=== PATIENT | female | born 1965 | race African-American/Black ===

== ENCOUNTER 2018-12-09 09:16 | Inpatient (IN) | payer MEDICAID, OTHER ==
[2018-12-09] VITALS (45 sets, daily range): BP systolic 113–211; BP diastolic 68–151
[~2018-12-09] VITALS: Ht 162.6 cm; Wt 95.7 kg
[2018-12-09] MEDS ORDERED: ENALAPRIL 2.5MG/2ML VIAL 2ML IV ONE (10:00)
[2018-12-09] MEDS ORDERED: NITROGLYCERIN 50MG PREMIX 250 ML IV ONE (10:00)
[2018-12-09] MEDS ORDERED: FUROSEMIDE 40MG/4ML VIAL IV ONE (10:00)
[2018-12-09 10:06] LABS: BASOPHILS % 0.8 % (0.0-2.0); EOSINOPHILS % 0.7 % (0.0-5.0); HEMATOCRIT. 40.5 % (36.0-48.0); HEMOGLOBIN. 12.7 g/dL (12.0-16.0); LYMPHOCYTES % 28.5 % (20.0-50.0); MEAN CORPUSCULAR HEMOGLOBIN 25.2 pg (28.0-32.0); MEAN CORPUSCULAR VOLUME 80.3 fL (81.0-99.0); MEAN PLATELET VOLUME 7.9 fl (7.4-10.4); MONOCYTES % 9.6 % (2.0-8.0); NEUTROPHILS % 60.4 % (40.0-76.0); PLATELET 449 x1000/uL (130-400); RED BLOOD CELL COUNT 5.05 mill/uL (4.2-5.4); RED CELL DISTRIBUTION WIDTH 16.2 % (11.6-14.6)
[2018-12-09 10:13] LABS: CHLORIDE 102 mEq/L (98-107)
[2018-12-09 10:30] LABS: INR 1.2; PARTIAL THROMBOPLASTIN TIME 28.2 sec (23.4-31.0)
[2018-12-09 10:52] LABS: CLARITY URINE CLOUDY (CLEAR); COLOR URINE YELLOW (YELLOW); KETONES URINE NEGATIVE (NEGATIVE); LEUKOCYTE ESTERASE URINE 2+ (NEGATIVE); NITRITE URINE NEGATIVE (NEGATIVE); OCCULT BLOOD URINE TRACE (NEGATIVE); PROTEIN URINE 2+ (NEGATIVE)
[2018-12-09] MEDS ORDERED: ONDANSETRON HCL 4MG/2ML INJ IV PRN (14:30)
[2018-12-09] MEDS ORDERED: AMLODIPINE 10MG TABLET PO SCH (14:30)
[2018-12-09] MEDS ORDERED: IPRATROPIUM/ALBUTEROL 0.5-3(2.5)MG/3ML NEB INH PRN (14:30)
[2018-12-09] MEDS: LOSARTAN POTASSIUM 50 MG TABLET PO SCH (14:33)
[2018-12-09] MEDS: PANTOPRAZOLE SODIUM 40 MG/VIAL IV SCH (15:04)
[2018-12-09] MEDS: NIFEDIPINE XL 90MG TAB PO SCH (15:04)
[2018-12-09] MEDS: NITROGLYCERIN 50MG PREMIX 250 ML IV PRN ×2 (16:16→23:19)
[2018-12-09 16:17] LABS: HEPATITIS B SURFACE ANTIGEN NEGATIVE
[2018-12-09] MEDS: CEFTRIAXONE 1 G PREMIX 50 ML IV SCH (16:31)
[2018-12-09] MEDS: CLONIDINE 0.1MG TABLET PO PRN (16:33)
[2018-12-09 16:46] LABS: HEPATITIS A AB IGM NEGATIVE (NEGATIVE)
[2018-12-09] MEDS: ACETAMINOPHEN 325MG TABLET PO PRN (18:47)
[2018-12-09] MEDS ORDERED: DEXTROSE 50% WATER 50ML SYRINGE IV PRN (20:15)
[2018-12-09] MEDS: INSULIN LISPRO 100 UNITS/ML SUBCUT SCH (21:06)
[2018-12-09] MEDS: HYDRALAZINE HCL 25MG TABLET PO SCH (21:08)
[2018-12-09] MEDS: METOPROLOL TARTRATE 50MG TABLET PO SCH (21:09)
[2018-12-09] MEDS: BLOOD SUGAR DIAGNOSTIC STRIP TEST SCH (21:09)
[2018-12-10] VITALS (82 sets, daily range): BP systolic 95–163; BP diastolic 40–100
[2018-12-10] MEDS: HYDRALAZINE HCL 25MG TABLET PO SCH (06:06)
[2018-12-10 06:28] LABS: BASOPHILS % 0.4 % (0.0-2.0); EOSINOPHILS % 0.4 % (0.0-5.0); HEMOGLOBIN. 11.9 g/dL (12.0-16.0); LYMPHOCYTES % 12.7 % (20.0-50.0); MEAN CORPUSCULAR HEMOGLOBIN 25.3 pg (28.0-32.0); MEAN CORPUSCULAR VOLUME 80.6 fL (81.0-99.0); MEAN PLATELET VOLUME 7.9 fl (7.4-10.4); MONOCYTES % 11.3 % (2.0-8.0); NEUTROPHILS % 75.2 % (40.0-76.0); PLATELET 395 x1000/uL (130-400); RED BLOOD CELL COUNT 4.71 mill/uL (4.2-5.4); RED CELL DISTRIBUTION WIDTH 15.8 % (11.6-14.6)
[2018-12-10 06:50] LABS: CHLORIDE 101 mEq/L (98-107)
[2018-12-10] MEDS: BLOOD SUGAR DIAGNOSTIC STRIP TEST SCH ×4 (07:50→20:28)
[2018-12-10] MEDS: PANTOPRAZOLE SODIUM 40 MG/VIAL IV SCH (08:54)
[2018-12-10] MEDS: FUROSEMIDE 40MG/4ML VIAL IVP SCH (08:54)
[2018-12-10] MEDS: POTASSIUM CHLORIDE 20MEQ/PACKET PO SCH (08:55)
[2018-12-10] MEDS: METOPROLOL TARTRATE 50MG TABLET PO SCH ×2 (08:55→20:58)
[2018-12-10] MEDS: LOSARTAN POTASSIUM 50 MG TABLET PO SCH (08:55)
[2018-12-10] MEDS: NIFEDIPINE XL 90MG TAB PO SCH (08:55)
[2018-12-10] MEDS: INSULIN LISPRO 100 UNITS/ML SUBCUT SCH ×4 (08:57→20:58)
[2018-12-10] MEDS: CEFTRIAXONE 1 G PREMIX 50 ML IV SCH (16:18)
[2018-12-11] VITALS (45 sets, daily range): BP systolic 118–171; BP diastolic 57–126
[2018-12-11 05:48] LABS: HEMATOCRIT. 39.2 % (36.0-48.0); HEMOGLOBIN. 12.3 g/dL (12.0-16.0); MEAN CORPUSCULAR VOLUME 79.6 fL (81.0-99.0); MEAN PLATELET VOLUME 8.1 fl (7.4-10.4); PLATELET 437 x1000/uL (130-400); RED BLOOD CELL COUNT 4.92 mill/uL (4.2-5.4); RED CELL DISTRIBUTION WIDTH 16.1 % (11.6-14.6)
[2018-12-11] MEDS: INSULIN LISPRO 100 UNITS/ML SUBCUT SCH ×4 (08:20→21:21)
[2018-12-11] MEDS: BLOOD SUGAR DIAGNOSTIC STRIP TEST SCH ×4 (08:20→21:17)
[2018-12-11] MEDS: PANTOPRAZOLE SODIUM 40 MG/VIAL IV SCH (08:22)
[2018-12-11] MEDS: FUROSEMIDE 40MG/4ML VIAL IVP SCH (08:22)
[2018-12-11] MEDS: METOPROLOL TARTRATE 50MG TABLET PO SCH ×2 (08:23→21:17)
[2018-12-11] MEDS: POTASSIUM CHLORIDE 20MEQ/PACKET PO SCH (08:23)
[2018-12-11] MEDS: LOSARTAN POTASSIUM 50 MG TABLET PO SCH (08:23)
[2018-12-11] MEDS: NIFEDIPINE XL 90MG TAB PO SCH (08:23)
[2018-12-11 11:19] LABS: PLATELET ESTIMATE SLIGHTLY INCREASED
[2018-12-11] MEDS: CEFTRIAXONE 1 G PREMIX 50 ML IV SCH (16:15)
[2018-12-11] MEDS: ACETAMINOPHEN 325MG TABLET PO PRN (19:33)
[2018-12-12] VITALS (13 sets, daily range): BP systolic 120–142; BP diastolic 70–93
[2018-12-12 05:25] LABS: HEMATOCRIT. 39.2 % (36.0-48.0); HEMOGLOBIN. 12.5 g/dL (12.0-16.0); MEAN CORPUSCULAR HEMOGLOBIN 25.3 pg (28.0-32.0); MEAN CORPUSCULAR VOLUME 79.4 fL (81.0-99.0); MEAN PLATELET VOLUME 7.9 fl (7.4-10.4); PLATELET 441 x1000/uL (130-400); RED BLOOD CELL COUNT 4.94 mill/uL (4.2-5.4); RED CELL DISTRIBUTION WIDTH 16.4 % (11.6-14.6)
[2018-12-12 05:51] LABS: CHLORIDE 101 mEq/L (98-107)
[2018-12-12] MEDS: INSULIN LISPRO 100 UNITS/ML SUBCUT SCH ×4 (05:59→21:07)
[2018-12-12] MEDS: BLOOD SUGAR DIAGNOSTIC STRIP TEST SCH ×4 (05:59→20:57)
[2018-12-12] MEDS: NIFEDIPINE XL 90MG TAB PO SCH (08:59)
[2018-12-12] MEDS: POTASSIUM CHLORIDE 20MEQ/PACKET PO SCH (08:59)
[2018-12-12] MEDS: PANTOPRAZOLE SODIUM 40 MG/VIAL IV SCH (08:59)
[2018-12-12] MEDS: FUROSEMIDE 40MG/4ML VIAL IVP SCH (08:59)
[2018-12-12] MEDS: LOSARTAN POTASSIUM 100 MG TABLET PO SCH (09:00)
[2018-12-12] MEDS: METOPROLOL TARTRATE 50MG TABLET PO SCH ×2 (09:00→21:09)
[2018-12-12 09:16] LABS: PLATELET ESTIMATE INCREASED
[2018-12-12] MEDS: CEFTRIAXONE 1 G PREMIX 50 ML IV SCH ×2 (15:09→17:14)
[2018-12-12] MEDS: ACETAMINOPHEN 325MG TABLET PO PRN (19:33)
[2018-12-13] VITALS (22 sets, daily range): BP systolic 81–162; BP diastolic 48–93
[2018-12-13] MEDS: BLOOD SUGAR DIAGNOSTIC STRIP TEST SCH ×4 (06:47→21:41)
[2018-12-13] MEDS: INSULIN LISPRO 100 UNITS/ML SUBCUT SCH ×4 (08:04→21:45)
[2018-12-13] MEDS: FAMOTIDINE 20MG TABLET PO SCH ×2 (08:48→17:47)
[2018-12-13] MEDS: LOSARTAN POTASSIUM 100 MG TABLET PO SCH (08:48)
[2018-12-13] MEDS: POTASSIUM CHLORIDE 20MEQ/PACKET PO SCH (08:49)
[2018-12-13] MEDS: METOPROLOL TARTRATE 50MG TABLET PO SCH (08:49)
[2018-12-13] MEDS: NIFEDIPINE XL 90MG TAB PO SCH (08:49)
[2018-12-13] MEDS: FUROSEMIDE 40MG/4ML VIAL IVP SCH ×2 (08:49→17:47)
[2018-12-13] MEDS: DOCUSATE SODIUM 100MG CAPSULE PO PRN (08:49)
[2018-12-13] MEDS: SPIRONOLACTONE 25MG TABLET PO SCH (11:06)
[2018-12-13] MEDS: CEFTRIAXONE 1 G PREMIX 50 ML IV SCH (15:44)
[2018-12-13] MEDS: CARVEDILOL 12.5MG TABLET PO SCH (21:37)
[2018-12-14] VITALS (19 sets, daily range): BP systolic 120–154; BP diastolic 73–99
[2018-12-14 06:32] LABS: CHLORIDE 101 mEq/L (98-107)
[2018-12-14 06:41] LABS: HEMATOCRIT. 37.4 % (36.0-48.0); HEMOGLOBIN. 11.7 g/dL (12.0-16.0); MEAN CORPUSCULAR HEMOGLOBIN 24.7 pg (28.0-32.0); MEAN CORPUSCULAR VOLUME 78.8 fL (81.0-99.0); MEAN PLATELET VOLUME 7.9 fl (7.4-10.4); PLATELET 451 x1000/uL (130-400); RED BLOOD CELL COUNT 4.74 mill/uL (4.2-5.4); RED CELL DISTRIBUTION WIDTH 15.8 % (11.6-14.6)
[2018-12-14] MEDS: ACETAMINOPHEN 325MG TABLET PO PRN ×3 (06:52→22:01)
[2018-12-14] MEDS: BLOOD SUGAR DIAGNOSTIC STRIP TEST SCH ×4 (06:52→21:00)
[2018-12-14 06:53] LABS: LDL CHOLESTEROL 56 mg/dL (5-100)
[2018-12-14 06:55] LABS: HDL CHOLESTEROL 39 mg/dL (40-59)
[2018-12-14] MEDS: FUROSEMIDE 40MG/4ML VIAL IVP SCH ×2 (07:50→17:14)
[2018-12-14] MEDS: SPIRONOLACTONE 25MG TABLET PO SCH (07:51)
[2018-12-14] MEDS: CARVEDILOL 12.5MG TABLET PO SCH ×2 (07:51→22:00)
[2018-12-14] MEDS: FAMOTIDINE 20MG TABLET PO SCH ×2 (07:51→17:15)
[2018-12-14] MEDS: INSULIN LISPRO 100 UNITS/ML SUBCUT SCH ×4 (07:52→21:37)
[2018-12-14] MEDS: POTASSIUM CHLORIDE 20MEQ/PACKET PO SCH (07:52)
[2018-12-14] MEDS ORDERED: NIFEDIPINE XL 60MG TAB PO SCH (09:00)
[2018-12-14] MEDS ORDERED: POTASSIUM CHLORIDE 20MEQ TABLET SR PO NR (10:00)
[2018-12-14 10:26] LABS: PLATELET ESTIMATE SLIGHTLY INCREASED
[2018-12-14] MEDS: MAGNESIUM OXIDE 400MG TABLET PO SCH (10:36)
[2018-12-14] MEDS: LOSARTAN POTASSIUM 100 MG TABLET PO SCH (10:37)
[2018-12-14] MEDS ORDERED: MAGNESIUM 1 G PREMIX 100 ML IV NR (12:00)
[2018-12-14] MEDS: CEFTRIAXONE 1 G PREMIX 50 ML IV SCH (17:33)
[2018-12-15] VITALS (22 sets, daily range): BP systolic 131–178; BP diastolic 72–111
[2018-12-15 06:50] LABS: HEMOGLOBIN. 12.3 g/dL (12.0-16.0); MEAN CORPUSCULAR HEMOGLOBIN 24.2 pg (28.0-32.0); MEAN CORPUSCULAR VOLUME 78.8 fL (81.0-99.0); MEAN PLATELET VOLUME 7.7 fl (7.4-10.4); PLATELET 472 x1000/uL (130-400); RED BLOOD CELL COUNT 5.07 mill/uL (4.2-5.4)
[2018-12-15] MEDS: BLOOD SUGAR DIAGNOSTIC STRIP TEST SCH ×3 (06:54→16:50)
[2018-12-15] MEDS: INSULIN LISPRO 100 UNITS/ML SUBCUT SCH ×3 (07:20→17:37)
[2018-12-15] MEDS: ACETAMINOPHEN 325MG TABLET PO PRN ×2 (07:38→12:09)
[2018-12-15] MEDS: LOSARTAN POTASSIUM 100 MG TABLET PO SCH (07:38)
[2018-12-15] MEDS: FAMOTIDINE 20MG TABLET PO SCH ×2 (07:38→17:36)
[2018-12-15] MEDS: MAGNESIUM OXIDE 400MG TABLET PO SCH (07:38)
[2018-12-15] MEDS: DOCUSATE SODIUM 100MG CAPSULE PO PRN (07:38)
[2018-12-15] MEDS: CARVEDILOL 12.5MG TABLET PO SCH (07:39)
[2018-12-15] MEDS: SPIRONOLACTONE 25MG TABLET PO SCH (07:39)
[2018-12-15] MEDS: POTASSIUM CHLORIDE 20MEQ/PACKET PO SCH (07:39)
[2018-12-15 07:51] LABS: CHLORIDE 103 mEq/L (98-107)
[2018-12-15] MEDS ORDERED: REGADENOSON 0.4 MG/5 ML IV ONE ×2 (08:15→10:12)
[2018-12-15 09:34] LABS: PLATELET ESTIMATE SLIGHTLY INCREASED
[2018-12-15] MEDS: FUROSEMIDE 40MG/4ML VIAL IVP SCH ×2 (09:43→16:08)
[2018-12-15] MEDS: CLONIDINE 0.1MG TABLET PO PRN (16:08)
[2018-12-15] MEDS: CEFTRIAXONE 1 G PREMIX 50 ML IV SCH (16:08)
[2018-12-15] MEDS ORDERED: HYDRALAZINE 20MG/ML VIAL IV NR (17:30)
== END 2018-12-15 18:49 | disposition home or self-care (01) | DRG 190 ==
LOC: ER 09:16 → CVICU 10:51 → EDBEDREQ 10:59 → ENRESERV 11:07 → 3WST 12-12 04:57
PROVIDERS: ADMIT Internal Medicine; ATTEND Internal Medicine
DX: I21.4 Non-ST elevation (NSTEMI) myocardial infarction (principal); I50.21 Acute systolic (congestive) heart failure; I42.9 Cardiomyopathy, unspecified; E11.65 Type 2 diabetes mellitus with hyperglycemia; I11.0 Hypertensive heart disease with heart failure; I16.1 Hypertensive emergency; E66.9 Obesity, unspecified; H53.2 Diplopia
CPT/HCPCS: 36415; 71045; 76700; 78452; 80048; 80061; 82962; 83036; 83735; 83880; 84484; 86705; 86709; 86803; 87340; 93005; 93017; 93306; 93970; 94640; 96365; 96375; 99285; A9500; C9113; J0360; J0696; J1815; J1940; J2405; J2785; J3475; J3490; J7050; J7620

== ENCOUNTER 2020-08-30 16:27 | Inpatient (IN) | payer MEDICAID ==
[~2020-08-30] VITALS: Ht 162.6 cm; Wt 80.3 kg
[~2020-08-30 16:27] MED LIST: ASPI-1406 PO; ATOR20TA PO; CLON0.1T14 PO; CLOP75TA15 PO; HYDR-4135 PO; ISOS30TA91 PO; LOSA50TA3 PO; METF500S7 PO; NIFE-33 PO
[2020-08-30] MEDS ORDERED: HYDRALAZINE HCL 50MG TABLET PO ONE (17:00)
[2020-08-30] MEDS ORDERED: CLONIDINE 0.1MG TABLET PO ONE (17:00)
[2020-08-30 17:49] LABS: BASOPHILS % 0.6 % (0.0-2.0); EOSINOPHILS % 1.2 % (0.0-5.0); HEMATOCRIT. 37.4 % (36.0-48.0); HEMOGLOBIN. 12.3 g/dL (12.0-16.0); LYMPHOCYTES % 15.5 % (20.0-50.0); MEAN CORPUSCULAR HEMOGLOBIN 27.7 pg (28.0-32.0); MEAN CORPUSCULAR VOLUME 84.2 fL (81.0-99.0); MONOCYTES % 7.2 % (2.0-8.0); NEUTROPHILS % 75.5 % (40.0-76.0); PLATELET 306 x1000/uL (130-400); RED BLOOD CELL COUNT 4.44 mill/uL (4.2-5.4); RED CELL DISTRIBUTION WIDTH 13.6 % (11.6-14.6)
[2020-08-30 17:49] LABS: CLARITY URINE CLOUDY (CLEAR); COLOR URINE YELLOW (YELLOW); KETONES URINE TRACE (NEGATIVE); LEUKOCYTE ESTERASE URINE 1+ (NEGATIVE); NITRITE URINE NEGATIVE (NEGATIVE); OCCULT BLOOD URINE NEGATIVE (NEGATIVE); PROTEIN URINE 2+ (NEGATIVE); UROBILINOGEN URINE 0.2 E.U./dL (0.2-1.0)
[2020-08-30 17:54] LABS: CHLORIDE 101 mEq/L (98-107)
[2020-08-30] MEDS ORDERED: ASPIRIN 325MG TABLET PO ONE (18:30)
[2020-08-30] MEDS ORDERED: LABETALOL HCL 20MG/4ML CARPUJECT IV NR (18:30)
[2020-08-30] MEDS ORDERED: SODIUM CHLORIDE 0.9% 1,000 ML IV ONE (18:30)
[2020-08-30] MEDS ORDERED: LABETALOL 5MG/ML SYR 20 MG/4 ML SYRINGE IV NR (19:00)
[2020-08-30] MEDS ORDERED: CLONIDINE 0.3MG TABLET PO PRN (23:45)
[2020-08-31] VITALS (12 sets, daily range): BP systolic 117–210; BP diastolic 69–108
[2020-08-31] MEDS ORDERED: IPRATROPIUM/ALBUTEROL 0.5-3(2.5)MG/3ML NEB NEB PRN (01:00)
[2020-08-31] MEDS ORDERED: DOCUSATE SODIUM 100MG CAPSULE PO PRN (01:00)
[2020-08-31] MEDS ORDERED: MAGNESIUM/ALUMINUM HYDROXIDE/SIMETHICONE 30ML UDC PO PRN (01:00)
[2020-08-31] MEDS ORDERED: ACETAMINOPHEN 325MG TABLET PO PRN (01:00)
[2020-08-31] MEDS ORDERED: HYDROCODONE/ACETAMINOPHEN 5/325MG TABLET PO PRN (01:00)
[2020-08-31] MEDS ORDERED: GUAIFENESIN 200MG/10ML SUGAR FREE UDC PO PRN (01:00)
[2020-08-31] MEDS ORDERED: LORAZEPAM 2MG/ML CPJ IV PRN (01:00)
[2020-08-31] MEDS ORDERED: NA PHOS,M-B/NA PHOS,DI-BA ENEMA 118ML PR PRN (01:00)
[2020-08-31] MEDS ORDERED: MORPHINE SULFATE 2 MG/ML CPJ (NOT FOR IM USE) IV PRN (01:00)
[2020-08-31] MEDS ORDERED: DIPHENHYDRAMINE 50MG/ML VIAL IV PRN (01:00)
[2020-08-31] MEDS ORDERED: ONDANSETRON HCL 4MG/2ML INJ IV PRN (01:00)
[2020-08-31] MEDS: HYDRALAZINE HCL 100MG TABLET PO SCH ×4 (01:01→21:31)
[2020-08-31] MEDS: METOPROLOL TARTRATE 50MG TABLET PO SCH ×3 (01:02→21:32)
[2020-08-31] MEDS: AMLODIPINE 10MG TABLET PO SCH (01:02)
[2020-08-31] MEDS: LISINOPRIL 20MG TABLET PO SCH (08:36)
[2020-08-31] MEDS: ENOXAPARIN 40MG/0.4ML SYR SUBCUT SCH (08:38)
[2020-08-31] MEDS: ASPIRIN 81MG EC TABLET PO SCH (08:38)
[2020-08-31] MEDS: CLONIDINE 0.1MG TABLET PO PRN (16:35)
[2020-09-01] VITALS (12 sets, daily range): BP systolic 130–160; BP diastolic 63–88
[2020-09-01] MEDS: HYDRALAZINE HCL 100MG TABLET PO SCH ×3 (05:48→21:37)
[2020-09-01 06:03] LABS: BASOPHILS % 0.5 % (0.0-2.0); EOSINOPHILS % 1.8 % (0.0-5.0); HEMATOCRIT. 35.7 % (36.0-48.0); HEMOGLOBIN. 11.9 g/dL (12.0-16.0); LYMPHOCYTES % 24.1 % (20.0-50.0); MEAN CORPUSCULAR HEMOGLOBIN 28.1 pg (28.0-32.0); MEAN CORPUSCULAR VOLUME 84.3 fL (81.0-99.0); MEAN PLATELET VOLUME 8.2 fl (7.4-10.4); NEUTROPHILS % 65.6 % (40.0-76.0); PLATELET 320 x1000/uL (130-400); RED BLOOD CELL COUNT 4.23 mill/uL (4.2-5.4); RED CELL DISTRIBUTION WIDTH 13.5 % (11.6-14.6)
[2020-09-01 06:16] LABS: CHLORIDE 102 mEq/L (98-107)
[2020-09-01 06:25] LABS: HDL CHOLESTEROL 62 mg/dL (40-59)
[2020-09-01 06:27] LABS: T4 FREE 1.14 ng/dL (0.76-1.46)
[2020-09-01 06:29] LABS: LDL CHOLESTEROL 58 mg/dL (5-100)
[2020-09-01] MEDS: METOPROLOL TARTRATE 50MG TABLET PO SCH ×2 (09:00→21:37)
[2020-09-01] MEDS: AMLODIPINE 10MG TABLET PO SCH (09:52)
[2020-09-01] MEDS: LISINOPRIL 20MG TABLET PO SCH (09:52)
[2020-09-01] MEDS: ASPIRIN 81MG EC TABLET PO SCH (09:52)
[2020-09-01] MEDS: ENOXAPARIN 40MG/0.4ML SYR SUBCUT SCH (09:53)
[2020-09-01] MEDS ORDERED: DEXTROSE 50% WATER 50ML SYRINGE IV PRN (10:00)
[2020-09-01] MEDS ORDERED: REGADENOSON 0.4 MG/5 ML IV SCH (11:00)
[2020-09-01] MEDS: BLOOD SUGAR DIAGNOSTIC STRIP TEST SCH ×3 (12:10→21:37)
[2020-09-01] MEDS: INSULIN LISPRO 100 UNITS/ML SUBCUT SCH ×3 (12:57→21:38)
[2020-09-01 13:21] LABS: T4 FREE 1.16 ng/dL (0.76-1.46)
[2020-09-02] VITALS (12 sets, daily range): BP systolic 141–182; BP diastolic 70–99
[2020-09-02] MEDS: HYDRALAZINE HCL 100MG TABLET PO SCH (06:00)
[2020-09-02] MEDS: BLOOD SUGAR DIAGNOSTIC STRIP TEST SCH ×4 (06:10→21:30)
[2020-09-02] MEDS: INSULIN LISPRO 100 UNITS/ML SUBCUT SCH ×4 (07:20→23:21)
[2020-09-02] MEDS: LISINOPRIL 20MG TABLET PO SCH (09:32)
[2020-09-02] MEDS: ASPIRIN 81MG EC TABLET PO SCH (09:32)
[2020-09-02] MEDS: AMLODIPINE 10MG TABLET PO SCH (09:32)
[2020-09-02] MEDS: ENOXAPARIN 40MG/0.4ML SYR SUBCUT SCH (09:38)
[2020-09-02] MEDS: CLONIDINE 0.1MG TABLET PO PRN (12:00)
[2020-09-02] MEDS: METOPROLOL TARTRATE 50MG TABLET PO SCH ×2 (12:01→21:37)
[2020-09-02] MEDS: HYDRALAZINE HCL 50MG TABLET PO SCH ×2 (15:06→21:37)
[2020-09-03] VITALS (7 sets, daily range): BP systolic 107–189; BP diastolic 48–104
[2020-09-03] MEDS: CLONIDINE 0.1MG TABLET PO PRN (04:56)
[2020-09-03] MEDS: HYDRALAZINE HCL 50MG TABLET PO SCH (06:15)
[2020-09-03] MEDS: BLOOD SUGAR DIAGNOSTIC STRIP TEST SCH (06:16)
[2020-09-03] MEDS: INSULIN LISPRO 100 UNITS/ML SUBCUT SCH (06:43)
[2020-09-03] MEDS: LISINOPRIL 20MG TABLET PO SCH (07:59)
[2020-09-03] MEDS: AMLODIPINE 10MG TABLET PO SCH (08:00)
[2020-09-03] MEDS ORDERED: HYDRALAZINE HCL 50MG TABLET PO NR (08:00)
[2020-09-03] MEDS ORDERED: REGADENOSON 0.4 MG/5 ML IV ONE (08:19)
[2020-09-03] MEDS: METOPROLOL TARTRATE 50MG TABLET PO SCH (09:00)
[2020-09-03] MEDS: ASPIRIN 81MG EC TABLET PO SCH (09:41)
[2020-09-03] MEDS: ENOXAPARIN 40MG/0.4ML SYR SUBCUT SCH (09:41)
[2020-09-03] MEDS ORDERED: HYDRALAZINE HCL 100MG TABLET PO SCH (14:00)
== END 2020-09-03 11:58 | disposition home or self-care (01) | DRG 199 ==
LOC: ER 16:27 → 3WST 18:37 → ENRESERV 22:58
PROVIDERS: ADMIT Internal Medicine; ATTEND Internal Medicine
DX: I16.1 Hypertensive emergency (principal); E11.9 Type 2 diabetes mellitus without complications; I25.10 Atherosclerotic heart disease of native coronary artery without angina pectoris; I11.0 Hypertensive heart disease with heart failure; I50.9 Heart failure, unspecified; N17.0 Acute kidney failure with tubular necrosis; G93.40 Encephalopathy, unspecified; E78.5 Hyperlipidemia, unspecified; Z82.49 Family history of ischemic heart disease and other diseases of the circulatory system; Z83.3 Family history of diabetes mellitus; Z79.84 Long term (current) use of oral hypoglycemic drugs; Z79.899 Other long term (current) drug therapy; Z79.82 Long term (current) use of aspirin
CPT/HCPCS: 36415; 78452; 80048; 80053; 80061; 81003; 82962; 83036; 83880; 84439; 84443; 84484; 85025; 85379; 93005; 93017; 93306; 99291; A9500; J1650; J1815; J2785; J3490; J7030

== ENCOUNTER 2020-09-04 12:10 | Emergency (ER) | payer MEDICAID ==
[~2020-09-04] VITALS: Ht 162.6 cm; Wt 75.0 kg
[~2020-09-04 12:10] MED LIST changes: +ASPI-1158 PO; -ASPI-1406 PO; -HYDR-4135 PO; +ISOS30TA6 PO; -ISOS30TA91 PO
[2020-09-04 16:26] VITALS: BP 160/89
== END 2020-09-04 16:30 | disposition home or self-care (01) ==
LOC: ER 12:10
DX: I13.2 Hypertensive heart and chronic kidney disease with heart failure and with stage 5 chronic kidney disease, or end stage renal disease (principal); E11.22 Type 2 diabetes mellitus with diabetic chronic kidney disease; I50.9 Heart failure, unspecified; N18.6 End stage renal disease; Z79.84 Long term (current) use of oral hypoglycemic drugs; Z99.2 Dependence on renal dialysis; Z79.82 Long term (current) use of aspirin
CPT/HCPCS: 81025; 93005; 99283

== ENCOUNTER 2024-08-09 14:24 | Emergency (ER) | payer MEDICAID ==
[~2024-08-09] VITALS: Ht 160 cm; Wt 68.0 kg
[~2024-08-09 14:24] MED LIST changes: -ASPI-1158 PO; +ASPI-1406 PO; -ISOS30TA6 PO; +ISOS30TA91 PO; +LOSA-413 PO; -LOSA50TA3 PO; -METF500S7 PO; +METF500S9 PO
[2024-08-09 14:50] VITALS: BP 126/81; PULSE 120; RESP 16; TEMP 98.2; O2SAT 100
[2024-08-09] MEDS ORDERED: IBUP-2741 MT (17:06)
== END 2024-08-09 17:10 | disposition home or self-care (01) ==
LOC: ER 14:24
DX: S70.02XA Contusion of left hip, initial encounter (principal); D64.9 Anemia, unspecified; I50.9 Heart failure, unspecified; I11.0 Hypertensive heart disease with heart failure; E11.9 Type 2 diabetes mellitus without complications; Z79.899 Other long term (current) drug therapy; W07.XXXA Fall from chair, initial encounter; X58.XXXA Exposure to other specified factors, initial encounter; Y93.89 Activity, other specified; Y92.89 Other specified places as the place of occurrence of the external cause; Y99.8 Other external cause status
CPT/HCPCS: 73502; 99283

== ENCOUNTER 2025-08-27 12:49 | Inpatient (IN) | payer MEDICAID ==
[~2025-08-27] VITALS: Ht 162.6 cm; Wt 83.5 kg
[~2025-08-27 12:49] MED LIST changes: +IBUP-2741 MT
[2025-08-27 12:54] VITALS: O2SAT 100
[2025-08-27 13:57] LABS: BASOPHILS % 0.5 % (0.0-2.0); EOSINOPHILS % 0.6 % (0.0-5.0); HEMATOCRIT. 34.8 % (36.0-48.0); HEMOGLOBIN. 11.3 g/dL (12.0-16.0); LYMPHOCYTES % 10.7 % (20.0-50.0); MEAN PLATELET VOLUME 8.4 fl (7.4-10.4); MONOCYTES % 5.0 % (2.0-8.0); NEUTROPHILS % 83.2 % (40.0-76.0); PLATELET 356 x1000/uL (130-400); RED BLOOD CELL COUNT 4.34 mill/uL (4.2-5.4); RED CELL DISTRIBUTION WIDTH 15.6 % (11.6-14.6)
[2025-08-27 14:04] LABS: CREATININE 2.0 mg/dL (0.6-1.0); UREA NITROGEN BLOOD 33.0 mg/dL (9-23)
[2025-08-27 15:40] LABS: TROPONIN I HIGH SENSITIVITY 110 ng/L (3.0-34)
[2025-08-27 15:41] LABS: T4 FREE 1.41 ng/dL (0.89-1.76)
[2025-08-27 18:32] LABS: TROPONIN I HIGH SENSITIVITY 106 ng/L (3.0-34)
[2025-08-27] MEDS ORDERED: DOCUSATE SODIUM 100MG CAPSULE PO PRN (19:15)
[2025-08-27] MEDS ORDERED: ACETAMINOPHEN 325MG TABLET PO PRN ×2 (19:15)
[2025-08-27] MEDS ORDERED: ONDANSETRON HCL 4MG/2ML INJ IV PRN (19:15)
[2025-08-27] MEDS ORDERED: IPRATROPIUM/ALBUTEROL 0.5-3(2.5)MG/3ML NEB HHN PRN (19:15)
[2025-08-27 19:51] LABS: CLARITY URINE CLOUDY (CLEAR); COLOR URINE YELLOW (YELLOW); GLUCOSE URINE TRACE (NEGATIVE); KETONES URINE NEGATIVE (NEGATIVE); LEUKOCYTE ESTERASE URINE 3+ (NEGATIVE); NITRITE URINE NEGATIVE (NEGATIVE); OCCULT BLOOD URINE TRACE (NEGATIVE); PH URINE 5.0 (4.5-8.0); PROTEIN URINE 3+ (NEGATIVE); SPECIFIC GRAVITY URINE 1.017 (1.005-1.030); UROBILINOGEN URINE 0.2 E.U./dL (0.2-1.0)
[2025-08-27 19:55] LABS: *AMPHETAMINES SCREEN URINE NEGATIVE (NEGATIVE); *BARBITURATES SCREEN URINE NEGATIVE (NEGATIVE); *BENZODIAZEPINES SCREEN URINE NEGATIVE (NEGATIVE); *COCAINE SCREEN URINE NEGATIVE (NEGATIVE); CANNABINOID URINE SCREEN NEGATIVE (NEGATIVE); ECSTASY MDMA SCREEN URINE NEGATIVE (NEGATIVE); METHADONE URINE SCREEN NEGATIVE (NEGATIVE); OPIATES URINE SCREEN NEGATIVE (NEGATIVE); PHENCYCLIDINE URINE SCREEN NEGATIVE (NEGATIVE)
[2025-08-27] MEDS: FUROSEMIDE 40MG/4ML VIAL IVP SCH (19:58)
[2025-08-27 20:06] LABS: BACTERIA URINE 1+; SQUAMOUS EPITHELIAL CELL URINE 2+ /lpf (RARE/1+)
[2025-08-27] MEDS: CLONIDINE 0.1MG TABLET PO PRN (20:21)
[2025-08-27] MEDS: NIFEDIPINE XL 30MG TAB PO SCH (22:29)
[2025-08-27 23:07] VITALS: BP 183/97; PULSE 90; RESP 17; TEMP 36.418
[2025-08-28] VITALS: BP 169/92; PULSE 71; RESP 18; TEMP 36.4; O2SAT 100
[2025-08-28 04:00] VITALS: BP 174/89; PULSE 75; RESP 18; TEMP 36.7; O2SAT 99
[2025-08-28] MEDS: LABETALOL 5MG/ML 4ML INJ IV NR (04:35)
[2025-08-28 07:44] LABS: BASOPHILS % 0.6 % (0.0-2.0); EOSINOPHILS % 2.0 % (0.0-5.0); HEMATOCRIT. 32.2 % (36.0-48.0); HEMOGLOBIN. 10.4 g/dL (12.0-16.0); LYMPHOCYTES % 24.5 % (20.0-50.0); MEAN PLATELET VOLUME 8.3 fl (7.4-10.4); MONOCYTES % 8.8 % (2.0-8.0); NEUTROPHILS % 64.1 % (40.0-76.0); PLATELET 293 x1000/uL (130-400); RED BLOOD CELL COUNT 4.01 mill/uL (4.2-5.4); RED CELL DISTRIBUTION WIDTH 16.0 % (11.6-14.6)
[2025-08-28 07:55] LABS: CREATININE 1.9 mg/dL (0.6-1.0)
[2025-08-28 07:56] LABS: PROTEIN TOTAL 6.7 g/dL (6.0-8.3); UREA NITROGEN BLOOD 28 mg/dL (9-23)
[2025-08-28 07:57] LABS: ASPARTATE AMINOTRANSFERASE 20 IU/L (<34)
[2025-08-28 07:58] LABS: BILIRUBIN TOTAL 0.4 mg/dL (0.1-1.0)
[2025-08-28 08:00] VITALS: BP 187/92; PULSE 70; RESP 16; TEMP 36.4; O2SAT 99
[2025-08-28] MEDS: FUROSEMIDE 40MG/4ML VIAL IVP SCH (09:09)
[2025-08-28] MEDS ORDERED: HYDR12.54 MT (09:24)
[2025-08-28] MEDS ORDERED: GLIP-12 PO (09:24)
[2025-08-28] MEDS ORDERED: GABA-529 MT (09:24)
[2025-08-28] MEDS ORDERED: MEDICATION NOT ON FORMULARY EA (Hydrochlorothiazide 1 TAB) MT SCH (10:30)
[2025-08-28] MEDS ORDERED: DEXTROSE 50% WATER 50ML SYRINGE IV PRN (10:30)
[2025-08-28 12:00] VITALS: BP 173/90; PULSE 71; RESP 14; TEMP 36.4; O2SAT 95
[2025-08-28] MEDS: BLOOD SUGAR DIAGNOSTIC STRIP TEST SCH (12:49)
[2025-08-28] MEDS: HYDROCHLOROTHIAZIDE 12.5MG CAPSULE PO SCH (13:00)
[2025-08-28] MEDS: ISOSORBIDE MONONITRATE 30MG TABLET SR 24HR PO SCH (13:01)
[2025-08-28] MEDS: GABAPENTIN 100MG CAPSULE PO SCH (13:01)
[2025-08-28] MEDS: CLOPIDOGREL 75MG TABLET PO SCH (13:01)
[2025-08-28] MEDS: ASPIRIN 81MG EC TABLET PO SCH (13:02)
[2025-08-28] MEDS: HYDRALAZINE 20MG/ML VIAL IV SCH (13:02)
[2025-08-28] MEDS: LOSARTAN 50 MG TABLET PO SCH (13:07)
[2025-08-28] MEDS: INSULIN LISPRO 100 UNITS/ML SUBCUT SCH (13:07)
[2025-08-28] MEDS: ENOXAPARIN 30MG/0.3ML SYR SUBCUT SCH (14:30)
[2025-08-28] MEDS: CLONIDINE 0.1MG TABLET PO SCH (14:32)
[2025-08-28 16:00] VITALS: BP 135/89; PULSE 76; RESP 17; TEMP 36.3; O2SAT 100
[2025-08-28 16:05] LABS: TRIGLYCERIDE 140.0 mg/dL (0-150)
[2025-08-28 16:06] LABS: LDL CHOLESTEROL 128.0 mg/dL (5-100)
[2025-08-28 20:00] VITALS: BP 153/91; PULSE 86; RESP 18; TEMP 35.8; O2SAT 99
[2025-08-28] MEDS: ATORVASTATIN CALCIUM 20MG TABLET PO SCH (20:51)
[2025-08-29] VITALS: BP 156/88; PULSE 79; RESP 17; TEMP 36.9; O2SAT 99
[2025-08-29 04:00] VITALS: BP 150/84; PULSE 79; RESP 18; TEMP 36.6; O2SAT 100
[2025-08-29 06:46] LABS: BASOPHILS % 0.8 % (0.0-2.0); EOSINOPHILS % 2.4 % (0.0-5.0); HEMATOCRIT. 30.8 % (36.0-48.0); HEMOGLOBIN. 10.1 g/dL (12.0-16.0); LYMPHOCYTES % 26.5 % (20.0-50.0); MEAN PLATELET VOLUME 8.4 fl (7.4-10.4); MONOCYTES % 7.3 % (2.0-8.0); NEUTROPHILS % 63.0 % (40.0-76.0); PLATELET 305 x1000/uL (130-400); RED BLOOD CELL COUNT 3.86 mill/uL (4.2-5.4); RED CELL DISTRIBUTION WIDTH 15.6 % (11.6-14.6)
[2025-08-29 07:09] LABS: CREATININE 2.4 mg/dL (0.6-1.0)
[2025-08-29 07:10] LABS: UREA NITROGEN BLOOD 34.0 mg/dL (9-23)
[2025-08-29 08:25] VITALS: BP 146/87; PULSE 76; RESP 17; TEMP 36.9; O2SAT 100
[2025-08-29] MEDS: SODIUM CHLORIDE 0.45% 1,000 ML IV SCH (10:04)
[2025-08-29 12:00] VITALS: BP 159/85; PULSE 72; RESP 16; TEMP 36.7; O2SAT 100
[2025-08-29 16:00] VITALS: BP 169/93; PULSE 71; RESP 17; TEMP 36.8; O2SAT 100
[2025-08-29 20:00] VITALS: BP 160/93; PULSE 65; RESP 17; TEMP 36.6; O2SAT 97
[2025-08-30] VITALS: BP 183/98; PULSE 69; RESP 18; TEMP 35.7; O2SAT 64
[2025-08-30] MEDS: HYDRALAZINE 20MG/ML VIAL IV PRN (02:51)
[2025-08-30 04:00] VITALS: BP 155/87; PULSE 79; RESP 17; TEMP 35.6; O2SAT 96
[2025-08-30 08:00] VITALS: BP 128/80; PULSE 81; RESP 17; TEMP 36.1; O2SAT 98
[2025-08-30 08:03] LABS: BASOPHILS % 0.6 % (0.0-2.0); EOSINOPHILS % 2.0 % (0.0-5.0); HEMATOCRIT. 32.9 % (36.0-48.0); HEMOGLOBIN. 10.8 g/dL (12.0-16.0); LYMPHOCYTES % 23.9 % (20.0-50.0); MEAN PLATELET VOLUME 8.6 fl (7.4-10.4); MONOCYTES % 7.7 % (2.0-8.0); NEUTROPHILS % 65.8 % (40.0-76.0); PLATELET 319 x1000/uL (130-400); RED BLOOD CELL COUNT 4.11 mill/uL (4.2-5.4); RED CELL DISTRIBUTION WIDTH 15.5 % (11.6-14.6)
[2025-08-30 08:05] LABS: CREATININE 2.1 mg/dL (0.6-1.0); UREA NITROGEN BLOOD 31.0 mg/dL (9-23)
[2025-08-30 09:07] LABS: COMPLEMENT C3 117 mg/dL (82-167); COMPLEMENT C4 37 mg/dL (12-38)
[2025-08-30 12:00] VITALS: BP 149/92; PULSE 83; RESP 18; TEMP 36.2; O2SAT 99
[2025-08-30 16:00] VITALS: BP 135/87; PULSE 84; RESP 19; TEMP 36.2; O2SAT 98
[2025-08-30 20:00] VITALS: BP 151/93; PULSE 80; RESP 18; TEMP 36.3; O2SAT 99
[2025-08-31] VITALS: BP 161/86; PULSE 71; RESP 19; TEMP 36.1; O2SAT 98
[2025-08-31 04:00] VITALS: BP 156/89; PULSE 76; RESP 21; TEMP 36.2; O2SAT 100
[2025-08-31 08:00] VITALS: BP 136/64; PULSE 73; RESP 16; TEMP 36.3; O2SAT 98
[2025-08-31 08:36] LABS: CREATININE 2.0 mg/dL (0.6-1.0)
[2025-08-31 08:37] LABS: UREA NITROGEN BLOOD 32.0 mg/dL (9-23)
[2025-08-31 08:45] LABS: BASOPHILS % 0.7 % (0.0-2.0); EOSINOPHILS % 2.4 % (0.0-5.0); HEMATOCRIT. 31.9 % (36.0-48.0); HEMOGLOBIN. 10.5 g/dL (12.0-16.0); LYMPHOCYTES % 21.9 % (20.0-50.0); MEAN PLATELET VOLUME 8.3 fl (7.4-10.4); MONOCYTES % 9.7 % (2.0-8.0); NEUTROPHILS % 65.3 % (40.0-76.0); PLATELET 311 x1000/uL (130-400); RED BLOOD CELL COUNT 3.97 mill/uL (4.2-5.4); RED CELL DISTRIBUTION WIDTH 15.6 % (11.6-14.6)
[2025-08-31 12:00] VITALS: BP 152/83; PULSE 84; RESP 17; TEMP 36.6; O2SAT 99
[2025-08-31 16:00] VITALS: BP 140/76; PULSE 77; RESP 16; TEMP 36.4; O2SAT 99
[2025-08-31 20:00] VITALS: BP 169/92; PULSE 80; RESP 20; TEMP 36.1; O2SAT 100
[2025-09-01] VITALS: BP 174/87; PULSE 80; RESP 20; TEMP 36.2; O2SAT 100
[2025-09-01 04:00] VITALS: BP 183/86; PULSE 90; RESP 19; TEMP 36.2; O2SAT 98
[2025-09-01 08:00] VITALS: BP 159/85; PULSE 87; RESP 16; TEMP 36; O2SAT 100
[2025-09-01 12:00] VITALS: BP 161/86; PULSE 90; RESP 18; TEMP 36.6; O2SAT 100
[2025-09-01] MEDS: HYDROCHLOROTHIAZIDE 12.5MG CAPSULE PO SCH (15:37)
[2025-09-01 16:00] VITALS: BP 158/85; PULSE 95; RESP 17; TEMP 36.1; O2SAT 99
[2025-09-01 17:35] VITALS: BP 158/85; PULSE 95; RESP 18; TEMP 96.9
[2025-09-01] MEDS ORDERED: HYDROCHLOROTHIAZIDE 12.5MG CAPSULE PO SCH (21:00)
[2025-09-04 17:07] LABS: ANTI-NUCLEAR ANTIBODIES DIRECT Negative (Negative)
== END 2025-09-01 18:00 | disposition home or self-care (01) | DRG 133 ==
LOC: ER 13:44 → EDBEDREQTM 18:44 → EDBEDREQ 18:44 → ENRESERV 19:59 → 6WST 22:40
PROVIDERS: ADMIT Family Medicine Adult Medicine; ATTEND Family Medicine Adult Medicine
DX: J96.00 Acute respiratory failure, unspecified whether with hypoxia or hypercapnia (principal); N17.0 Acute kidney failure with tubular necrosis; I50.33 Acute on chronic diastolic (congestive) heart failure; I13.0 Hypertensive heart and chronic kidney disease with heart failure and stage 1 through stage 4 chronic kidney disease, or unspecified chronic kidney disease; J45.901 Unspecified asthma with (acute) exacerbation; D50.9 Iron deficiency anemia, unspecified; E11.22 Type 2 diabetes mellitus with diabetic chronic kidney disease; D72.829 Elevated white blood cell count, unspecified; Z79.02 Long term (current) use of antithrombotics/antiplatelets; N18.9 Chronic kidney disease, unspecified; E66.9 Obesity, unspecified; E11.65 Type 2 diabetes mellitus with hyperglycemia; E78.5 Hyperlipidemia, unspecified; Z79.82 Long term (current) use of aspirin; Z82.49 Family history of ischemic heart disease and other diseases of the circulatory system; Z83.3 Family history of diabetes mellitus; Z68.31 Body mass index [BMI] 31.0-31.9, adult
CPT/HCPCS: 36415; 71045; 76770; 80048; 80053; 80061; 80305; 81003; 82962; 83036; 83880; 84439; 84443; 84484; 85025; 85379; 86038; 86160; 93005; 93306; 93970; 99285; J0360; J1650; J1815; J1938; J3490